=== PATIENT | male | born 1955 | race Caucasian/White ===

== ENCOUNTER 2024-10-10 10:01 | Day surgery (SDC) | payer MEDICARE ==
[~2024-10-10] VITALS: Ht 170.2 cm; Wt 70.7 kg
[2024-10-10] MEDS ORDERED: LIDOCAINE 2% 100MG/5ML SDV (FOR ANES.) As Ordered ONE (10:53)
[2024-10-10] MEDS ORDERED: MIDAZOLAM INJ 2MG/2ML VIAL As Ordered ONE (10:53)
[2024-10-10] MEDS ORDERED: SUGAMMADEX SODIUM 500 MG/5 ML VIAL (BRIDION) As Ordered ONE (10:53)
[2024-10-10] MEDS ORDERED: KETOROLAC 30 MG/ML 1ML VIAL As Ordered ONE (10:53)
[2024-10-10] MEDS ORDERED: ONDANSETRON 4MG 2ML VIAL As Ordered ONE (10:53)
[2024-10-10] MEDS ORDERED: ROCURONIUM BROMIDE 50MG/5ML VIAL As Ordered ONE (10:53)
[2024-10-10] MEDS ORDERED: fentaNYL 100 MCG/2 ML INJECTION As Ordered ONE (10:53)
[2024-10-10] MEDS ORDERED: propofoL 200 MG/20 ML VIAL As Ordered ONE (10:53)
[2024-10-10] MEDS: LR 1,000 ML IV SCH (11:14)
[2024-10-10] MEDS: ceFAZolin SOD 2 GM IV ONCE IV ONE (11:46)
[2024-10-10] MEDS ORDERED: ACETAMINOPHEN 1000MG/100ML IV BAG As Ordered ONE (11:57)
[2024-10-10] MEDS ORDERED: ONDANSETRON 4MG 2ML VIAL IV PRN (13:20)
[2024-10-10] MEDS ORDERED: LR 1,000 ML IV SCH (13:20)
[2024-10-10] MEDS ORDERED: fentaNYL 100 MCG/2 ML INJECTION IV PRN (13:20)
[2024-10-10] MEDS ORDERED: oxyCODONE 5MG TAB PO PRN (13:35)
[2024-10-10] MEDS ORDERED: HYDROMORPHONE HCL 0.5 MG/ 0.5 ML SYRINGE IV PRN (13:35)
[2024-10-10] MEDS ORDERED: traMADol 50 MG TAB PO PRN (13:45)
[2024-10-10] MEDS ORDERED: NS (Normal Saline) 0.9% 1,000 ML IV SCH (13:45)
[2024-10-10 14:24] VITALS: BP 133/71; TEMP 97.2; O2SAT 98
[2024-10-10] MEDS ORDERED: KETOROLAC 30 MG/ML 1ML VIAL IV SCH (19:00)
== END 2024-10-10 14:39 | disposition home or self-care (01) ==
LOC: M SDC 10:01
PROVIDERS: ATTEND Surgery
DX: K40.90 Unilateral inguinal hernia, without obstruction or gangrene, not specified as recurrent (principal); F17.290 Nicotine dependence, other tobacco product, uncomplicated
CPT/HCPCS: 49650; 93005; C1781; J0131; J0665; J0690; J1100; J1885; J2250; J2405; J3010; S2900